=== PATIENT | male | born 1995 | race Hispanic/Latino ===

== ENCOUNTER 2022-01-10 07:00 | Emergency (ER) | payer OTHER ==
[~2022-01-10] VITALS: Ht 177.8 cm; Wt 88.0 kg
[2022-01-10] MEDS ORDERED: FLON1SPR NARES (08:39)
[2022-01-10] MEDS ORDERED: BENZ200C70 PO (08:39)
[2022-01-10] MEDS ORDERED: ALL10TAB2 PO (08:39)
[2022-01-10] MEDS ORDERED: PSEU120T19 PO (08:39)
[2022-01-10 08:56] VITALS: BP 126/84
== END 2022-01-10 09:13 | disposition home or self-care (01) ==
LOC: M ED 07:00
DX: R09.81 Nasal congestion (principal); R05.9 Cough, unspecified; Z79.899 Other long term (current) drug therapy